=== PATIENT | male | born 1960 | race Two or more races ===

== ENCOUNTER 2019-09-01 16:18 | Emergency (ER) | payer MEDICARE ==
[~2019-09-01] VITALS: Ht 175.3 cm; Wt 72.6 kg
--- OUTSIDE RECORDS SUMMARY | 2019-09-01 16:21 | XMS REPORT | Summary of Care ---
Author Author Nemo Hoang M.A. Organization Unknown Address Unknown Phone Unavailable Care Team Providers [facility] Name Role Phone Nemo Hoang M.A. Unavailable Unavailable Bárbara CALVO, Austen Unavailable Unavailable CHARY CALVO NE, ANAHI Reyes Unavailable Unavailable VIELKA CALVO, REDDY Unavailable Unavailable GREGORY CALVO, HATTIE Whyte Unavailable Unavailable Unavailable Unavailable Functional Status Name Dates Details Functional status health issues are not documented Status: Name Dates Details Cognitive status health issues are not documented Status: Problems Name Dates Details Right hand weakness (728.87, R29.898) Status: Active Medications Name Dates Details Acetaminophen-Codeine #3 300-30 MG Oral Tablet * Start : 08-Mar-2019 Active ALPRAZolam 0.5 MG Oral Tablet TAKE 1 TABLET 3 TIMES DAILY. * Quantity: 90 Refills: 0 * Start : 08-Mar-2019 Active Aspirin 81 MG Oral Tablet Delayed Release TAKE 1 TABLET DAILY. * Quantity: 30 Refills: 2 * Start : 08-Mar-2019 Active Atorvastatin Calcium 80 MG Oral Tablet TAKE 1 TABLET BY MOUTH AT BEDTIME * Quantity: 30 Refills: 3 * Start : 08-Mar-2019 Active Clopidogrel Bisulfate 75 MG Oral Tablet TAKE 1 TABLET BY MOUTH EVERY DAY * Quantity: 30 Refills: 3 * Start : 08-Mar-2019 Active 30 Tablet Bottle Docusate Sodium 100 MG Oral Tablet TAKE 2 TABLET BEDTIME * Refills: 0 * Start : 08-Mar-2019 Active Gabapentin 300 MG Oral Capsule TAKE 1 CAPSULE 4 TIMES DAILY * Refills: 0 * Start : 08-Mar-2019 Active Metoprolol Tartrate 25 MG Oral Tablet TAKE 0.5 TABLET DAILY * Refills: 0 * Start : 08-Mar-2019 Active Nitroglycerin 0.4 MG Sublingual Tablet Sublingual * Refills: 0 * Start : 08-Mar-2019 Active Allergies and Adverse Reactions Name Dates Details Advil (Allergy) Status: Active naproxen (Allergy) Status: Active tramadol (Allergy) Status: Active Past Medical History Name Dates Details History of Coronary artery disease (414.00, I25.10) Status: Resolved Procedures Procedure Dates Details MRI Spine cervical wo contrast 83727 Date: 12-Apr-2019 Immunization Name Dates Details Immunizations not documented Social History Name Dates Details - Status: Name Dates Details Never smoker Vital Signs Date Test Result Details No Known Vitals to report Results Date Description Value Details Results not documented Plan of Care Name Dates Details Planned Observations Planned Goals not documented Instructions Name Dates Details Instructions not documented Encounters Appointment; APRYL ANTONIO M.D. Encounter Diagnosis: Problem not documented On: 08-Mar-2019 11:00 Appointment; HATTIE JENKINS M.D. Encounter Diagnosis: Problem not documented On: 12-May-2019 13:30
--- OUTSIDE RECORDS SUMMARY | 2019-09-01 16:21 | XMS REPORT ---
[facility] Address Unknown Phone Unavailable Care Team Providers Care Interchange Agent Name Role Phone Unavailable Unavailable Problems This patient has no known problems. Allergies, Adverse Reactions, Alerts This patient has no known allergies or adverse reactions. Medications This patient has no known medications. Encounters Start Date/Time End Date/Time Encounter Type Admission Type Attending [facility] Facility Care Department Encounter ID 2019-04-02 07:44:05 Outpatient [id number] 2019-10-21 00:00:00 2019-10-21 00:00:00 Outpatient [facility] [id number] 2019-09-01 02:56:10 2019-09-01 02:56:10 Emergency [facility] [id number] 2019-09-01 00:37:26 2019-09-01 00:37:26 Outpatient [facility] [id number] 2019-08-26 00:00:00 2019-08-26 00:00:00 Outpatient [facility] [id number] 2019-08-25 00:00:00 2019-08-25 00:00:00 Outpatient [facility] [id number] 2019-08-18 00:00:00 2019-08-18 00:00:00 Outpatient [facility] [id number] 2019-08-06 12:00:14 2019-08-06 12:00:14 Emergency [facility] [id number] 2019-08-06 10:29:59 2019-08-06 10:29:59 Emergency [facility] [id number] 2019-08-03 10:36:07 2019-08-03 10:36:07 Outpatient [facility] [id number] 2019-07-26 00:00:00 2019-07-26 00:00:00 Outpatient [facility] [id number] 2019-07-05 00:00:00 2019-07-05 00:00:00 Outpatient [facility] [id number] 2019-06-25 12:14:40 2019-06-25 12:14:40 Emergency [facility] [id number] 2019-06-25 11:37:16 2019-06-25 11:37:16 Emergency [facility] [id number] 2019-06-24 00:00:00 2019-06-24 00:00:00 Outpatient [facility] [id number] 2019-05-07 00:00:00 2019-05-07 00:00:00 Outpatient [facility] [id number] 2019-05-07 00:00:00 2019-05-07 00:00:00 Outpatient [facility] [id number] 2019-05-03 00:00:00 2019-05-03 00:00:00 Outpatient [facility] [id number] 2019-04-29 00:00:00 2019-04-29 00:00:00 Outpatient [facility] [id number] 2019-04-25 06:54:00 2019-04-25 06:54:00 Emergency E [facility] [id number] 2019-04-15 00:00:00 2019-04-15 00:00:00 Outpatient [facility] [id number] 2019-04-07 12:29:57 2019-04-07 12:29:57 Outpatient [facility] [id number] 2019-03-19 00:00:00 2019-03-19 00:00:00 Outpatient [facility] [id number] 2019-03-17 13:14:24 2019-03-17 13:14:24 Outpatient [facility] [id number] 2019-03-17 00:00:00 2019-03-17 00:00:00 Outpatient [facility] [id number] 2019-03-09 00:00:00 2019-03-09 00:00:00 Outpatient [facility] [id number] 2019-03-08 00:00:00 2019-03-08 00:00:00 Outpatient [facility] [id number] 2019-03-08 00:00:00 2019-03-08 00:00:00 Outpatient [facility] [id number] 2019-03-05 09:06:00 2019-03-05 09:06:00 Outpatient [id number] 2019-02-18 09:24:49 2019-02-18 09:24:49 Outpatient [facility] [id number] 2019-02-16 00:00:00 2019-02-16 00:00:00 Outpatient [facility] [id number] 2019-02-09 09:58:20 2019-02-09 09:58:20 Outpatient [facility] [id number] 2019-02-05 00:00:00 2019-02-05 00:00:00 Outpatient [facility] [id number] 2019-02-02 14:24:03 2019-02-02 14:24:03 Outpatient [facility] [id number] 2019-02-01 11:38:29 2019-02-01 11:38:29 Outpatient [facility] [id number] 2019-02-01 00:00:00 2019-02-01 00:00:00 Outpatient [facility] [id number] 2019-01-26 10:22:00 2019-01-26 10:22:00 Outpatient [facility] [id number] 2019-01-26 08:00:31 2019-01-26 08:00:31 Outpatient [facility] [id number] 2019-01-04 00:00:00 2019-01-04 00:00:00 Outpatient [facility] [id number] 2018-12-28 00:00:00 2018-12-28 00:00:00 Outpatient [facility] [id number] 2018-12-22 00:00:00 2018-12-22 00:00:00 Outpatient [facility] [id number] 2018-12-18 13:42:06 2018-12-18 13:42:06 Outpatient [facility] [id number] 2018-12-09 00:00:00 2018-12-09 00:00:00 Outpatient [facility] [id number] 2018-11-27 00:00:00 2018-11-27 00:00:00 Outpatient [facility] [id number] 2018-11-26 00:00:00 2018-11-26 00:00:00 Outpatient [facility] [id number] 2018-11-24 00:00:00 2018-11-24 00:00:00 Outpatient [facility] [id number] 2018-11-12 00:00:00 2018-11-12 00:00:00 Outpatient [facility] [id number] 2018-11-06 12:35:01 2018-11-06 12:35:01 Outpatient [facility] [id number] 2018-10-28 12:05:12 2018-10-28 12:05:12 Emergency [facility] [id number] 2017-06-02 00:00:00 2017-06-02 00:00:00 Outpatient [facility] [id number] 2017-05-28 00:00:00 2017-05-28 00:00:00 Outpatient [facility] [id number] 2017-05-27 00:00:00 2017-05-27 00:00:00 Outpatient [facility] [id number] 2017-05-20 00:00:00 2017-05-20 00:00:00 Outpatient [facility] [id number] 2017-05-12 00:00:00 2017-05-12 00:00:00 Outpatient [facility] [id number] 2017-05-07 00:00:00 2017-05-07 00:00:00 Outpatient [facility] [id number] 2017-05-05 09:58:56 2017-05-05 09:58:56 Outpatient [facility] [id number] 2017-05-01 13:14:27 2017-05-01 13:14:27 Outpatient [facility] [id number] 2017-04-29 00:00:00 2017-04-29 00:00:00 Outpatient [facility] [id number] 00:00:00 2017 00:00:00 Outpatient [facility] [id number] 2017-04-23 11:09:25 2017-04-23 11:09:25 Outpatient [facility] [id number] 2017-04-22 09:37:11 2017-04-22 09:37:11 Outpatient [facility] [id number] 2017-04-21 00:00:00 2017-04-21 00:00:00 Outpatient [facility] [id number] 2017-04-17 00:00:00 2017-04-17 00:00:00 Outpatient [facility] [id number] 2017-04-10 00:00:00 2017-04-10 00:00:00 Outpatient [facility] [id number] 2017-04-09 10:15:47 2017-04-09 10:15:47 Outpatient [facility] [id number] 2017-04-08 00:00:00 2017-04-08 00:00:00 Outpatient [facility] [id number] 2017-04-07 00:00:00 2017-04-07 00:00:00 Outpatient [facility] [id number] 2017-04-03 00:00:00 2017-04-03 00:00:00 Outpatient [facility] [id number] 2017-03-31 00:00:00 2017-03-31 00:00:00 Outpatient [facility] [id number] 2017-03-28 10:42:51 2017-03-28 10:42:51 Outpatient [facility] [id number] 2017-03-21 09:10:52 2017-03-21 09:10:52 Outpatient [facility] [id number] 2017-03-21 00:00:00 2017-03-21 00:00:00 Outpatient [facility] [id number] 2017-03-20 00:00:00 2017-03-20 00:00:00 Outpatient [facility] [id number] 2017-03-18 10:47:26 2017-03-18 10:47:26 Outpatient [facility] [id number] 2017-03-04 11:46:31 2017-03-04 11:46:31 Outpatient [facility] [id number] 2017-03-03 11:43:45 2017-03-03 11:43:45 Outpatient [facility] [id number] 2017-03-03 10:06:50 2017-03-03 10:06:50 Outpatient [facility] [id number] 2017-02-27 09:56:02 2017-02-27 09:56:02 Outpatient [facility] [id number] 2017-02-26 00:00:00 2017-02-26 00:00:00 Outpatient [facility] [id number] 2017-02-19 00:00:00 2017-02-19 00:00:00 Outpatient [facility] [id number] 2017-01-21 15:12:46 2017-01-21 15:12:46 Outpatient [facility] [id number] 2017-01-07 08:23:24 2017-01-07 08:23:24 Outpatient [facility] [id number] 2016-12-31 08:59:39 2016-12-31 08:59:39 Outpatient [facility] [id number]
[2019-09-01] MEDS ORDERED: HYDROCODONE/APAP 10MG-325MG TAB PO ONE ×2 (16:45→17:30)
--- NOTE | 2019-09-01 17:22 | Diagnostic Imaging Report ---
EXAMINATION: RIBS UNILAT W/CXR INDICATION: COMPARISON: None FINDINGS: LINES/TUBES:None LUNGS:The lungs are well-inflated. No focal consolidation or pulmonary edema. PLEURA:No pleural effusion or pneumothorax. MEDIASTINUM:The cardiomediastinal silhouette appears normal in size and shape. BONES/SOFT TISSUES:Mildly displaced left eighth lateral rib fracture and nondisplaced left seventh anterolateral rib fracture. ABDOMEN:No free air under the diaphragm. IMPRESSION: Mildly displaced left eighth lateral rib fracture and nondisplaced left seventh anterolateral rib fracture. No focal pneumonia or pulmonary edema. Signed by: Donaldo Foster MD on 09/01/2019 5:19 PM
== END 2019-09-01 21:00 | disposition home or self-care (01) ==
LOC: ER 16:18
DX: S22.42XA Multiple fractures of ribs, left side, initial encounter for closed fracture (principal); W01.0XXA Fall on same level from slipping, tripping and stumbling without subsequent striking against object, initial encounter; Y92.009 Unspecified place in unspecified non-institutional (private) residence as the place of occurrence of the external cause; I10 Essential (primary) hypertension; I25.10 Atherosclerotic heart disease of native coronary artery without angina pectoris; E78.5 Hyperlipidemia, unspecified; G43.909 Migraine, unspecified, not intractable, without status migrainosus; Z86.73 Personal history of transient ischemic attack (TIA), and cerebral infarction without residual deficits; Z88.6 Allergy status to analgesic agent
CPT/HCPCS: 71101